=== PATIENT | female | born 1990 | race Caucasian/White ===

== ENCOUNTER 2017-02-12 18:51 | Emergency (ER) | payer SELFPAY ==
[~2017-02-12 18:51] MED LIST: Z.0.NO CURRENT MEDS
[2017-02-12 19:13] VITALS: BP 129/63; PULSE 91; RESP 20; TEMP 99.3; O2SAT 100
--- NOTE | 2017-02-12 21:45 | PD ---
HPI Chief Complaint: Lump, Cyst, Hernia Time Seen by Provider: 21:00 Travel History International Travel<30 days: No Contact w/Intl Traveler<30days: No Traveled to known affect area: No History of Present Illness HPI 26-year-old female presents to the emergency room for evaluation of small, painful lump to her right posterior hand that has been present for the past 4 months. 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 It is now causing significant pain and occasional paresthesias of the right distal fingers. Patient has been taking ibuprofen without relief in symptoms. States it seems to be growing in size. She even tried to smack it down with a Bible. No chronic medical conditions or daily medications. History Past Medical Histgory Medical History: Denies Significant Hx Tetanus Vaccination: < 5 Years LMP: 2 WEEKS Hx Cancer: No Social History Alcohol Use: No Tobacco Use: No Allergies-Medications (Allergen,Severity, Reaction): Coded Allergies: Stadol (Verified Allergy, Severe, Swelling, 02/12/17) Reported Meds & Prescriptions Reported Meds & Active Scripts Active No Active Prescriptions or Reported Medications Review of Systems Except as stated in HPI: all other systems reviewed are Neg Physical Exam Narrative GENERAL: Well-nourished, well-developed female in no acute distress. Afebrile. Ambulatory. SKIN: Focused skin assessment warm/dry. There is a a 1 cm mobile, tender, soft lump to the right posterior, proximal hand. No erythema, fluctuance, ecchymosis , or lymphangitis. HEAD: Normocephalic. EYES: No scleral icterus. No injection or drainage. NECK: Supple, trachea midline. No JVD or lymphadenopathy. CARDIOVASCULAR: Regular rate and rhythm without murmurs, gallops, or rubs. RESPIRATORY: Breath sounds equal bilaterally. No accessory muscle use. MUSCULOSKELETAL: No cyanosis, or edema. Full range of motion. 2+ radial pulse. Less than 2 second capillary refill distally. Data Data Last Documented VS Vital Signs Date Time Temp Pulse Resp B/P Pulse Ox O2 Delivery O2 Flow Rate FiO2 02/12/17 19:13 99.3 91 20 129/63 100 MDM Medical Screen Exam Complete: Yes Emergency Medical Condition: No Differential Diagnosis Ganglion cyst Narrative Course 26-year-old female presents to the emergency room for evaluation of a painful cyst to her right posterior, proximal hand the past 4 months. They've reveals a mobile, tender, 1 cm cyst to the right posterior, proximal hand. No erythema , ecchymosis, or lymphangitis. This is ganglion cyst. Patient was told to follow-up with a primary care physician for outpatient aspiration and/or surgical intervention given progression of symptoms. There are no urgent or emergent conditions at this time. A medical screening exam was performed: At the time of evaluation the presenting medical condition was determined not to be of an emergent nature. The patient was given the option of receiving additional care, but declined. Patient was given options for additional community resources from which to obtain care. The Patient Has Been advised to seek medical attention for their presenting complaint. The patient has been advised to return to the ER at any time if an emergent condition develops. Primary Impression: Encounter for medical screening examination Scripts No Active Prescriptions or Reported Meds Disposition: 01 DISCHARGE HOME Condition: Stable Jewels Lamar Feb 12, 2017 21:45
== END 2017-02-12 21:16 | disposition left against medical advice (07) ==
LOC: PHED 18:51 → PHEFT 21:16
DX: R22.31 Localized swelling, mass and lump, right upper limb (principal)
CPT/HCPCS: 99281